=== PATIENT | male | born 1955 | race Caucasian/White ===

== ENCOUNTER 2016-11-30 10:22 | Emergency (ER) | payer OTHER ==
[2016-11-30] MEDS ORDERED: CLINDAMYCIN 300 MG CAP PO ONE (16:00)
== END 2016-11-30 16:34 | disposition home or self-care (01) ==
LOC: ER 10:22
DX: L03.115 Cellulitis of right lower limb (principal); M51.36 Other intervertebral disc degeneration, lumbar region; R06.02 Shortness of breath; I10 Essential (primary) hypertension; Z86.73 Personal history of transient ischemic attack (TIA), and cerebral infarction without residual deficits; Z79.02 Long term (current) use of antithrombotics/antiplatelets; E78.00 Pure hypercholesterolemia, unspecified; Z77.29 Contact with and (suspected) exposure to other hazardous substances
CPT/HCPCS: 36415; 71010; 72100; 80053; 83880; 85025; 85610; 85730; 93005; 93971